=== PATIENT | male | born 1960 | race Caucasian/White ===

== ENCOUNTER 2019-10-08 07:05 | Emergency (ER) | payer MEDICAID, OTHER ==
[~2019-10-08] VITALS: Ht 170.2 cm; Wt 72.6 kg
[~2019-10-08 07:05] MED LIST: IBUPROFEN600 MG ORAL; NORCO 5-325 TA1 EACH ORAL
[2019-10-08 07:11] VITALS: BP 132/77
--- NOTE | 2019-10-08 07:16 | NUR ---
ED Nurse Note: patient walked into ED from home c/o left knee pain for 3 days. patient denies any injury or trauma. patient is ambulatory steady gait, breathing unlabored and even, speaking in full sentences.
--- NOTE | 2019-10-08 07:44 | NUR ---
ED Nurse Note: xray at bedside.
[2019-10-08 08:30] VITALS: BP 130/72
[2019-10-08] MEDS ORDERED: IBUPROFEN600 M1 ORAL (08:40)
--- NOTE | 2019-10-08 08:43 | NUR ---
ER DISCHARGE NOTE: Patient is cleared to be discharged per ERMD Dr. Escudero, pt is aox4, on room air, with stable vital signs. pt was given dc and prescription instructions, pt was able to verbalize understanding, pt id band removed without complications. pt is able to ambulate with steady gait. pt took all belongings.
[2019-10-08 08:44] VITALS: BP 130/72
--- NOTE | 2019-10-08 08:45 | Diagnostic Imaging Report ---
EXAM: XR Left Knee, 3 Views CLINICAL HISTORY: PAIN TECHNIQUE: Three views of the left knee. COMPARISON: No relevant prior studies available. FINDINGS/IMPRESSION: No acute fracture or dislocation. Moderate joint space narrowing of the medial compartment. Consider MRI correlation if clinically indicated. No joint effusion. Diffuse osseous demineralization.
--- NOTE | 2019-10-08 12:54 | Emergency Room Report ---
History of Present Illness General Chief Complaint: Pain Source: Patient, Medical Record Present Illness HPI 59-year-old male presents complaining of left knee pain. Started 3 days ago. Denies any fall or injury. States he wakes up with intense pain which then subsides. Pain is currently a 5 out of 10, dull, nonradiating. Is able to bear weight. No other aggravating relieving factors. Denies any other associated symptoms Allergies: Coded Allergies: No Known Allergies (Unverified , 07/29/16) COVID-19 Screening Contact w/high risk pt: No Experienced COVID-19 symptoms?: No COVID-19 Testing performed VENIPUNCTURIST: No Patient History Past Medical History: none Past Surgical History: none Pertinent Family History: none Social History: Denies: smoking, alcohol use, drug use Immunizations: UTD Reviewed Nursing Documentation: PMH: Agreed; PSxH: Agreed Nursing Documentation-PMH Past Medical History: No History, Except For Review of Systems All Other Systems: negative except mentioned in HPI Physical Exam Vital Signs Date Time Temp Pulse Resp B/P (MAP) Pulse Ox O2 Delivery O2 Flow Rate FiO2 10/08/19 07:11 96.6 77 18 132/77 96 Room Air Sp02 EP Interpretation: reviewed, normal General Appearance: no apparent distress, alert, GCS 15, non-toxic Head: normocephalic, atraumatic Eyes: bilateral eye normal inspection, bilateral eye PERRL ENT: hearing grossly normal, normal pharynx, no angioedema, normal voice Neck: full range of motion, supple/symm/no masses Respiratory: chest non-tender, lungs clear, normal breath sounds, speaking full sentences Cardiovascular #1: regular rate, rhythm, no edema Cardiovascular #2: 2+ carotid (R), 2+ carotid (L), 2+ radial (R), 2+ radial (L) , 2+ dorsalis pedis (R), 2+ dorsalis pedis (L) Gastrointestinal: normal bowel sounds, non tender, soft, non-distended, no guarding, no rebound Rectal: deferred Genitourinary: normal inspection, no CVA tenderness Musculoskeletal: back normal, normal range of motion, gait/station normal, non- tender Neurologic: alert, motor strength/tone normal, oriented x3, sensory intact, responsive, speech normal Psychiatric: judgement/insight normal, memory normal, mood/affect normal, no suicidal/homicidal ideation Reflexes: 3+ bicep (R), 3+ bicep (L), 3+ tricep (R), 3+ tricep (L), 3+ knee (R) , 3+ knee (L) Lymphatic: no adenopathy Medical Decision Making Diagnostic Impression: Primary Impression: Knee pain Qualified Codes: M25.562 - Pain in left knee ER Course Hospital Course 59 yo M presents to ED c/o L knee pain Differential diagnoses include: Fracture, dislocation, sprain, contusion Clinical course Patient placed on stretcher. After initial history and physical, I ordered xrays of L knee Xrays prelim read shows no acute fracture/dislocation. some medial compartment narrowing noted I discussed findings with patient. Likely osteoarthritis. Placed in alejandra wrap. Safe for discharge for close outpatient follow-up. I will provide referrals Diagnosis - knee pain Stable and discharged to home with prescription for Motrin. apply ice, keep elevated. weight bear as tolerated. Followup with PMD/ortho. Return to ED if symptoms recur or worsen Other X-Ray Diagnostic Results Other X-Ray Diagnostic Results : X-Ray ordered: L knee # of Views/Limited Vs Complete: 3 View Indication: Pain EP Interpretation: Yes Interpretation: no dislocation, no soft tissue swelling, no fractures Impression: No acute disease Electronically Signed by: Electronically signed by Jovan Escudero MD Last Vital Signs Date Time Temp Pulse Resp B/P (MAP) Pulse Ox O2 Delivery O2 Flow Rate FiO2 10/08/19 08:44 96.6 70 18 130/72 96 Room Air Status: improved Disposition: HOME, SELF-CARE Condition: Stable Scripts Ibuprofen* (MOTRIN*) 600 Mg Tablet 600 MG ORAL Q8H PRN for FOR PAIN, #30 TAB 0 Refills Prov: Jovan Escudero MD 10/08/19 Referrals: NON PHYSICIAN (PCP) Corey Kaufman [facility] Open 24 hour /7 days a week by Appointment Only [address] [facility] [id number] Patient Instructions: Knee Pain, [id number] Jovan Escudero MD Oct 08, 2019 12:54
== END 2019-10-08 08:44 | disposition home or self-care (01) ==
LOC: EMR 07:30
DX: M25.562 Pain in left knee (principal)
CPT/HCPCS: 73562; Z7502; 99283